=== PATIENT | male | born 1985 | race Caucasian/White ===

== ENCOUNTER 2018-04-02 17:05 | Emergency (ER) | payer OTHER ==
[~2018-04-02] VITALS: Ht 180.3 cm; Wt 55.2 kg
[~2018-04-02 17:05] MED LIST: ADVAIR 250/501 DISK IH; ALBUTEROL SULF8.5 GM IH; BACTRIM,SEPT1 TABLET PO; FLOVENT 11120 INHALA; KEFLEX500 MG PO; METHADONE PO; PERCOCET 5/31 TABLET PO; VENTOLIN HFA18 GM
[2018-04-02] MEDS ORDERED: PERCOCET 7.51 TABLET PO (19:46)
[2018-04-02] MEDS ORDERED: MOTRIN800 MG PO (19:46)
[2018-04-02] MEDS ORDERED: VALIUM5 MG PO (19:46)
[2018-04-02 20:29] VITALS: BP 131/89
== END 2018-04-02 20:30 | disposition home or self-care (01) ==
LOC: EME 17:05
DX: M54.42 Lumbago with sciatica, left side (principal); M51.36 Other intervertebral disc degeneration, lumbar region; G89.29 Other chronic pain; F17.200 Nicotine dependence, unspecified, uncomplicated; Z88.6 Allergy status to analgesic agent; Z88.5 Allergy status to narcotic agent
CPT/HCPCS: 99281; 99284; J1100; J3010

== ENCOUNTER 2018-04-06 20:00 | Inpatient (IN) | payer OTHER ==
[~2018-04-06] VITALS: Ht 180.3 cm; Wt 56.4 kg
[~2018-04-06 20:00] MED LIST changes: +MOTRIN800 MG PO; +PERCOCET 7.51 TABLET PO; +VALIUM5 MG PO
[2018-04-06 20:29] LABS: APPEARANCE CLEAR ((CLEAR)); BILIRUBIN NEGATIVE; BLOOD NEGATIVE; COLOR YELLOW ((YELLOW)); GLUCOSE (STRIP) NEGATIVE; KETONES NEGATIVE; LEUKOCYTES NEGATIVE; NITRITE NEGATIVE; PROTEIN (STRIP) NEGATIVE; SPECIFIC GRAVITY 1.021 (1.000-1.030); UCUL ADDED? NO; UROBILINOGEN 0.2 MG/DL (0.2-1.0)
[2018-04-06 20:43] LABS: HEMOGLOBIN 12.4 G/DL (12.5-16.6); MCH 28.8 PG (29.0-34.0); MCHC 32.6 G/DL (30.0-36.0); MCV 88.4 FL (86-99); PLATELET COUNT 90 K/uL (156-360); RBC DIS.WIDTH-CV 14.9 % (11.8-14.6); RBC DIS.WIDTH-SD 48.2 % (39-53); WHITE BLOOD COUNT 10.5 K/uL (4.1-10.2)
[2018-04-06 21:07] LABS: CHLORIDE 112 mEq/L (99-109); POTASSIUM 4.2 mEq/L (3.7-5.4); SODIUM 142 mEq/L (136-147)
[2018-04-06 21:09] LABS: GLUCOSE 76 mg/dL (70-99)
[2018-04-06 21:13] LABS: CREATININE 0.8 mg/dL (0.6-1.3); GFR ESTIMATE (CALCULATED) > 59 mL/min/ (58.99-99999)
[2018-04-06 21:14] LABS: UREA NITROGEN (BUN) 11 mg/dL (9-23)
[2018-04-06 22:52] LABS: ERTH.SED.RATE 34 MM/HR (0-15)
[2018-04-07 01:37] VITALS: BP 127/73
[2018-04-07 06:53] VITALS: BP 133/77
[2018-04-07 15:16] VITALS: BP 124/79
[2018-04-08 00:54] VITALS: BP 122/86
[2018-04-08 06:04] LABS: HEMOGLOBIN 10.6 G/DL (12.5-16.6); MCH 28.6 PG (29.0-34.0); MCHC 33.1 G/DL (30.0-36.0); MCV 86.5 FL (86-99); RBC DIS.WIDTH-SD 47.6 % (39-53); WHITE BLOOD COUNT 7.5 K/uL (4.1-10.2)
[2018-04-08 06:06] LABS: PLATELET COUNT 289 K/uL (156-360)
[2018-04-08 06:18] LABS: CHLORIDE 106 MEQ/L (99-109); CREATININE 0.7 MG/DL (0.6-1.3); GFR ESTIMATE (CALCULATED) > 59 mL/min/ (58.99-99999); GLUCOSE 82 mg/dL (70-99); POTASSIUM 4.1 MEQ/L (3.7-5.4); SODIUM 138 MEQ/L (136-147); UREA NITROGEN (BUN) 14 mg/dL (9-23)
[2018-04-08 08:15] VITALS: BP 107/66
[2018-04-08 08:27] LABS: INTER. NORMALIZED RATIO 1.1
[2018-04-08 08:30] LABS: PTT 28.5 SEC (25-37)
[2018-04-08 11:15] VITALS: BP 127/82
[2018-04-09 00:12] VITALS: BP 119/68
[2018-04-09 05:48] LABS: BASOPHIL (%) 0.3 % (0-1); EOSINOPHIL (%) 2.2 % (0-5); EOSINOPHIL COUNT 0.2 K/uL (0-0.3); HEMATOCRIT 35.3 % (38.0-50.0); HEMOGLOBIN 11.7 G/DL (12.5-16.6); IMMATURE GRANULOCYTE (%) 0.3 % (0.0-0.7); LYMPHOCYTE (%) 38.9 % (15-42); MCH 28.5 PG (29.0-34.0); MCHC 33.1 G/DL (30.0-36.0); MCV 85.9 FL (86-99); MONOCYTE (%) 8.6 % (3-12); MONOCYTE COUNT 0.7 K/uL (0-0.8); NEUTROPHIL (%) 49.7 % (45-76); NEUTROPHIL COUNT 3.9 K/uL (1.8-6.4); PLATELET COUNT 279 K/uL (156-360); RBC DIS.WIDTH-CV 14.6 % (11.8-14.6); RBC DIS.WIDTH-SD 46.1 % (39-53); RED BLOOD COUNT 4.11 M/uL (4.00-5.50); WHITE BLOOD COUNT 7.8 K/uL (4.1-10.2)
[2018-04-09 06:23] LABS: CHLORIDE 101 MEQ/L (99-109); CREATININE 0.8 MG/DL (0.6-1.3); GFR ESTIMATE (CALCULATED) > 59 mL/min/ (58.99-99999); GLUCOSE 86 mg/dL (70-99); POTASSIUM 4.2 MEQ/L (3.7-5.4); SODIUM 137 MEQ/L (136-147); UREA NITROGEN (BUN) 18 mg/dL (9-23)
[2018-04-09 07:29] VITALS: BP 120/72
[2018-04-09 14:26] VITALS: BP 110/69
[2018-04-09 15:30] VITALS: BP 115/57
[2018-04-09 23:44] VITALS: BP 108/61
[2018-04-10 05:54] LABS: BASOPHIL (%) 0.5 % (0-1); EOSINOPHIL (%) 3.9 % (0-5); EOSINOPHIL COUNT 0.2 K/uL (0-0.3); HEMATOCRIT 35.2 % (38.0-50.0); HEMOGLOBIN 11.2 G/DL (12.5-16.6); IMMATURE GRANULOCYTE (%) 0.3 % (0.0-0.7); LYMPHOCYTE (%) 43.8 % (15-42); LYMPHOCYTE COUNT 2.6 K/uL (1.0-2.8); MCH 27.7 PG (29.0-34.0); MCHC 31.8 G/DL (30.0-36.0); MCV 86.9 FL (86-99); MONOCYTE (%) 9.3 % (3-12); MONOCYTE COUNT 0.6 K/uL (0-0.8); NEUTROPHIL (%) 42.2 % (45-76); NEUTROPHIL COUNT 2.5 K/uL (1.8-6.4); PLATELET COUNT 312 K/uL (156-360); RBC DIS.WIDTH-CV 14.6 % (11.8-14.6); RBC DIS.WIDTH-SD 47.3 % (39-53); RED BLOOD COUNT 4.05 M/uL (4.00-5.50); WHITE BLOOD COUNT 5.9 K/uL (4.1-10.2)
[2018-04-10 06:18] LABS: CHLORIDE 102 MEQ/L (99-109); CREATININE 0.8 MG/DL (0.6-1.3); GFR ESTIMATE (CALCULATED) > 59 mL/min/ (58.99-99999); GLUCOSE 97 mg/dL (70-99); POTASSIUM 4.2 MEQ/L (3.7-5.4); SODIUM 138 MEQ/L (136-147)
[2018-04-10 06:24] LABS: UREA NITROGEN (BUN) 28 mg/dL (9-23)
[2018-04-10 08:09] VITALS: BP 120/69
[2018-04-10 15:59] VITALS: BP 111/68
[2018-04-11 00:33] VITALS: BP 109/65
[2018-04-11 06:42] LABS: BASOPHIL (%) 0.4 % (0-1); EOSINOPHIL (%) 4.9 % (0-5); EOSINOPHIL COUNT 0.3 K/uL (0-0.3); HEMATOCRIT 39.4 % (38.0-50.0); HEMOGLOBIN 12.8 G/DL (12.5-16.6); IMMATURE GRANULOCYTE (%) 0.4 % (0.0-0.7); LYMPHOCYTE (%) 42.6 % (15-42); LYMPHOCYTE COUNT 2.4 K/uL (1.0-2.8); MCH 28.7 PG (29.0-34.0); MCHC 32.5 G/DL (30.0-36.0); MCV 88.3 FL (86-99); MONOCYTE (%) 9.2 % (3-12); MONOCYTE COUNT 0.5 K/uL (0-0.8); NEUTROPHIL (%) 42.5 % (45-76); NEUTROPHIL COUNT 2.4 K/uL (1.8-6.4); RBC DIS.WIDTH-CV 14.6 % (11.8-14.6); RBC DIS.WIDTH-SD 46.5 % (39-53); RED BLOOD COUNT 4.46 M/uL (4.00-5.50); WHITE BLOOD COUNT 5.5 K/uL (4.1-10.2)
[2018-04-11 06:58] LABS: CHLORIDE 102 MEQ/L (99-109); CREATININE 0.8 MG/DL (0.6-1.3); GFR ESTIMATE (CALCULATED) > 59 mL/min/ (58.99-99999); GLUCOSE 89 mg/dL (70-99); PLAT.SUFFICIENCY ADEQUATE; PLATELET CLUMPS PRESENT - PLATELET COUNT APPEARS ADEQUATE; PLATELET COUNT UNABLE TO REPORT K/uL (156-360); POTASSIUM 4.8 MEQ/L (3.7-5.4); SODIUM 138 MEQ/L (136-147); UREA NITROGEN (BUN) 24 mg/dL (9-23)
[2018-04-11 08:19] VITALS: BP 124/78
[2018-04-11 10:54] VITALS: BP 00/00
[2018-04-11] MEDS ORDERED: NICOTINE PATCH1 EAC1 TD (11:21)
[2018-04-11] MEDS ORDERED: DURICEF1 GM PO (11:22)
[2018-04-11] MEDS ORDERED: BACTRIM,SEPT1 TABLET PO (11:22)
[2018-04-11] MEDS ORDERED: GABAPENTIN100 MG PO (11:23)
[2018-04-11] MEDS ORDERED: FLORASTOR250 MG PO (11:23)
[2018-04-11] MEDS ORDERED: OXYCODONE-APAP1 EACH PO (11:25)
[2018-04-11] MEDS ORDERED: LIDOCAINE PAIN1 EACH TP (11:25)
[2018-04-11] MEDS ORDERED: TORADOL10 MG PO (11:27)
== END 2018-04-11 14:59 | disposition home or self-care (01) | DRG 478 ==
LOC: EME 20:00 → 5SOUTH 04-07 00:23 → EDOF 04-07 00:23 → ENRESERV 04-07 00:29 → 5SOUTH 04-07 01:09
PROVIDERS: Hospitalist; Internal Medicine; Radiology Diagnostic Radiology
PROC: 0QB03ZX Excision of Lumbar Vertebra, Percutaneous Approach, Diagnostic (ICD-10-PCS; principal; 2018-04-08)
DX: M46.26 Osteomyelitis of vertebra, lumbar region (principal); M46.46 Discitis, unspecified, lumbar region; G89.29 Other chronic pain; F11.20 Opioid dependence, uncomplicated; M48.061 Spinal stenosis, lumbar region without neurogenic claudication; J45.909 Unspecified asthma, uncomplicated; R63.6 Underweight; Z68.1 Body mass index [BMI] 19.9 or less, adult; F17.210 Nicotine dependence, cigarettes, uncomplicated; Z86.14 Personal history of Methicillin resistant Staphylococcus aureus infection; Z71.6 Tobacco abuse counseling
CPT/HCPCS: 70140; 72158; 74176; 77012; 80048; 81003; 85025; 85027; 85610; 85651; 85730; 87040; 87070; 87075; 87205; 93306; 99281; 99285; J1650; J1885; J2270; J2543; J3010; J3370; J7050